=== PATIENT | female | born 1955 | race Caucasian/White ===

== ENCOUNTER 2017-10-28 07:00 | Day surgery (SDC) | payer OTHER ==
[~2017-10-28] VITALS: Ht 160 cm; Wt 57.6 kg
[~2017-10-28 07:00] MED LIST: ASPIR-TRIN325 MG PO; CITRACAL + D31 EACH PO; CLARITIN-D 121 EACH PO; ESCITALOPRAM OX10 MG PO; FISH OIL 1,0001 EAC2 NG; HYZAAR 50-12.5 T1 EA PO; IBUPROFEN800 MG PO; LIPITOR10 MG PO; LOSARTAN-HCTZ1 EACH PO; NORCO 5-325 TA1 EACH PO; PROBIOTIC1 EAC1 PO; PROMETRIUM200 MG PO; RESTASIS1 DROP OD; SPIRONOLACTONE50 MG PO; SYNTHROID150 MCG PO; VIVELLE-DOT1 EAC1 TD; ZYRTEC10 MG PO
--- NOTE | 2017-10-28 10:11 | NUR ---
10/28/17 1011 Jackie Madden 1006 PATIENT ARRIVES TO PACU AWAKE, BUT DROWSY. RESP EVEN AND UNLABORED, MASK AT 10 LITERS. 1010 PATIENT CONTINUES TO BE AWAKE, ASKING QUESTIONS APPROPRIATELY. MASK OFF, PATIENT ON ROOM AIR @ 98%. PATIENT DENIES PAIN OR NAUSEA.
[2017-10-28] MEDS ORDERED: OXYCODON-ACETA1 EAC2 PO (10:43)
[2017-10-28] MEDS ORDERED: IBUPROFEN600 MG PO (10:43)
[2017-10-28] MEDS ORDERED: MAPAP325 MG PO (10:43)
--- NOTE | 2017-10-28 11:23 | NUR ---
LE 1030 PT RETURNED FROM PACU, AWAKE TALKING WITH RN. PT DENIES PAIN AND NAUSEA. WATER AT BEDSIDE. VITALS STABLE. FOOD OFFERED, PT DECLINED. NO FURTHER NEEDS AT THIS TIME. AT BEDSIDE, CALL LIGHT IN REACH.
--- NOTE | 2017-10-28 11:24 | NUR ---
IN TO CHECK ON PT, PT AWAKE. PT RATES PAIN 3/10, DECLINES PAIN MEDICATION. DENIES NAUSEA. CRACKERS GIVEN. VITALS STABLE. NO FURTHER NEEDS AT THIS TIME. CALL LIGHT IN REACH.
--- NOTE | 2017-10-28 12:35 | OR ---
[facility] [address], [place] [address] Signed DATE OF OPERATION: 10/28/2017 SURGEON: Melodie Woodall MD PREOPERATIVE DIAGNOSES: 1. Right lower central breast mass. 2. Known history of fibrocystic disease. 3. Family history of breast cancer (sister age 45). POSTOPERATIVE DIAGNOSES: 1. Right lower central breast mass. 2. Known history of fibrocystic disease. 3. Family history of breast cancer (sister age 45). PROCEDURES: Excisional biopsy of right central inferior breast mass with clinically negative margin (oncoplastic closure with incision and inframammary cleft). ANESTHESIA: General LMA, Melodie Ahuja CRNA, and local 10 mL of 0.25% Marcaine with epinephrine. INDICATION: This 62-year-old white woman is well known to me from the past. She was recently noted to have a palpable mass in the inferior central aspect of the breast. It measures about 1.5 - 2.0 cm in clinical dimension. The usual radiologist (Dr Tanner ) is not currently available and radiology coverage right now is not able to interpret the current imaging. On that basis on October 25, 2017, I performed fine-needle aspiration of the mass, which did not deliver cystic fluid in any way. On that basis, a biopsy has been recommended. Imaging studies have been obtained including the breast in the three view diagnostic sense as well as ultrasound. The lesion on mammogram is subtle. The final interpretation has not yet been undertaken. On ultrasound the mass appeared to be a mixed lucency type lesion. The patient wanted biopsy as expediently as possible, understandably, and I have recommended excisional biopsy. Electronically Signed By: MELODIE WOODALL MD 10/28/17 1235 PATIENT NAME: NOEMY VEGA OPERATIVE REPORT DATE OF : 51 REPORT #: [id number] PHYSICIAN: MELODIE WOODALL MD PCP: CHRISTINA BARRY MD REPORT IS CONFIDENTIAL AND NOT TO BE RELEASED WITHOUT AUTHORIZATION [facility] [address], [place] [address] Signed She does have family history of breast cancer in a sister, who was 45 ,and who is alive and well. BRCA testing in the sister was negative. Additionally, she has undergone breast biopsy by me in the distant past, which showed fibrocystic disease and notably underwent right image guided biopsy by Dr. Tanner only a year ago, showing benign disease. She understands the risks of bleeding, infection, cosmetic deformity, need for additional treatment, should malignancy be found, and other unforeseen complications and wished to proceed with biopsy at this time. FINDINGS: There is minimal bruising from the previous FNA performed a few days ago. An inframammary incision was made to preserve cosmesis and wide excision of the lesion was undertaken. Admittedly, the lesion did have a fair amount of suspicion. given its density. There were some cystic changes associated in the area, but this lesion did not represent a cyst. Good cosmesis was maintained at conclusion of procedure. DESCRIPTION OF PROCEDURE: The patient was brought to the operating room, given a general anesthetic by LMA technique. Preoperative antibiotic Ancef was given. Sequential compression devices were used. Device stockings were used and heparin subcutaneously administered. The right breast and chest were prepared with a chlorhexidine solution and draped sterilely. The inferior mammary crease in the right side was marked and a palpable lesion was in the central inferior aspect a few centimeter from the inferior margin. An incision was made in the mammary crease and dissection carried through the dermis with electrocautery. Flaps were elevated cephalad to completely excise the lesion in question. It was quite dense. It measured nearly 2 cm I believe. Wide excision was undertaken and a margin was undertaken in the superficial aspect just below the dermis on the possibility this may represent a malignancy after all. Irrigation was undertaken and hemostasis assured with electrocautery. Proximal closure was undertaken with interrupted 2-0 Vicryl and skin closed with running subcuticular 3-0 Vicryl. Steri-Strips were applied as was a Mepilex silver sponge dressing and an OpSite. The patient tolerated the procedure well, was ultimately extubated and transferred to recovery room in good condition having suffered no complications. Sponge, needle, and instrument counts reported as correct x3. Melodie Woodall MD Electronically Signed By: MELODIE WOODALL MD 10/28/17 1235 PATIENT NAME: NOEMY VEGA OPERATIVE REPORT DATE OF : 51 REPORT #: [id number] PHYSICIAN: MELODIE WOODALL MD PCP: CHRISTINA BARYR MD REPORT IS CONFIDENTIAL AND NOT TO BE RELEASED WITHOUT AUTHORIZATION [facility] [address] [place] [id number] Signed /BIRD /[id number] cc: MD Enedelia Perez MD Copies: Farzana HSU MD, CYNTHIA SUE MD ~ Electronically Signed By: MELODIE WOODALL MD 10/28/17 1235 PAT[facility] NAME[facility] REPORT DATE OF : 51 REPORT #: [id number] PHYSICIAN: MELODIE WOODALL MD PCP: CHRISTINA BARRY MD REPORT IS CONFIDENTIAL AND NOT TO BE RELEASED WITHOUT AUTHORIZATION
== END 2017-10-28 11:50 | disposition home or self-care (01) ==
LOC: DS 07:00
PROVIDERS: Surgery
PROC: 0HBT0ZX Excision of Right Breast, Open Approach, Diagnostic (ICD-10-PCS; principal; 2017-10-28 08:15)
DX: N60.11 Diffuse cystic mastopathy of right breast (principal); N60.81 Other benign mammary dysplasias of right breast; I10 Essential (primary) hypertension; E03.9 Hypothyroidism, unspecified; G47.33 Obstructive sleep apnea (adult) (pediatric); Z88.1 Allergy status to other antibiotic agents; Z88.2 Allergy status to sulfonamides; Z80.3 Family history of malignant neoplasm of breast; Z98.890 Other specified postprocedural states; Z79.899 Other long term (current) drug therapy
CPT/HCPCS: 00404; J0690; J1100; J1644; J1885; J2250; J2405; J2704; J2765; J3010; J7120